=== PATIENT | male | born 1995 | race African-American/Black ===

== ENCOUNTER 2020-05-22 13:42 | Emergency (ER) | payer OTHER ==
[~2020-05-22] VITALS: Ht 188 cm; Wt 84.5 kg
--- NOTE | 2020-05-22 14:18 | REP ---
INDICATION: nose bleed, headache. COMPARISON: None. TECHNIQUE: Helical scanning is acquired. 5 mm axial images were reformatted. Coronal MPR images were generated. FINDINGS: Bone window settings demonstrate an intact bony calvarium. There is no evidence of skull fracture or incidental bony calvarial lesion. The visualized paranasal sinuses appear clear. No intraorbital abnormality is seen. On soft tissue window setting images; the lateral, third, and fourth ventricles are normal in size and position. Zheng-white differentiation pattern is normal above and below the tentorium. There are is no evidence of intracranial hemorrhage. No mass, edema, infarction, or midline shift is seen. No extra-axial fluid collection is appreciated. IMPRESSION: Negative noncontrast head CT. <Electronically signed by Usman Tony > 05/22/20 0851
[2020-05-22 15:20] LABS: HEMOGLOBIN 15.1 g/dl (13.5-17.5); MEAN CORPUSCULAR HEMOGLOBIN 30.1 pg (27.0-33.0); MEAN CORPUSCULAR HGB CONC 33.6 g/dl (32.0-36.5); MEAN CORPUSCULAR VOLUME 89.6 fl (80.0-96.0); PLATELET COUNT, AUTOMATED 168 10^3/uL (150-450); RED BLOOD COUNT 5.02 10^6/uL (4.30-6.10); WHITE BLOOD COUNT 7.7 10^3/uL (4.0-10.0)
[2020-05-22 15:31] LABS: INR 1.23; PROTHROMBIN TIME 15.8 SECONDS (12.5-14.3)
[2020-05-22 15:32] LABS: PARTIAL THROMBOPLASTIN TIME 29.3 SECONDS (24.2-38.5)
[2020-05-22 15:43] VITALS: BP 134/69
== END 2020-05-22 15:44 | disposition home or self-care (01) ==
LOC: M ED 13:42
DX: G44.52 New daily persistent headache (NDPH) (principal); R04.0 Epistaxis

== ENCOUNTER → 2020-12-10 | Outpatient (REF) | payer OTHER ==
[2020-12-10 14:12] LABS: SEMEN APPEARANCE OPAQUE (OPAQUE); SEMEN VISCOSITY LIQUID (LIQUID); SEMEN VOLUME 4.5 ml (2.0-5.0); SEMEN pH 7.5 (7.0-8.0); SPERM CONCENTRATION 82.5 M/ml (>=15.0); WBC CONCENTRATION <=1 M/ml (<=1 M/ml)
== END ==
LOC: M LAB REF 13:50
PROVIDERS: ATTEND Obstetrics & Gynecology
DX: N46.8 Other male infertility (principal)

== ENCOUNTER 2021-04-22 08:11 | Emergency (ER) | payer OTHER ==
[~2021-04-22] VITALS: Ht 188 cm; Wt 95.4 kg
[2021-04-22] MEDS ORDERED: DERMABOND TOPICAL SKIN ADHESIVE TOP ONE (10:35)
[2021-04-22] MEDS ORDERED: ACETAMINOPHEN 500 MG TAB PO ONE (10:35)
[2021-04-22 11:04] VITALS: BP 120/76
== END 2021-04-22 11:06 | disposition home or self-care (01) ==
LOC: M ED 08:11
DX: S01.112A Laceration without foreign body of left eyelid and periocular area, initial encounter (principal); W21.9XXA Striking against or struck by unspecified sports equipment, initial encounter; Y92.89 Other specified places as the place of occurrence of the external cause; Y93.9 Activity, unspecified; Y99.1 Military activity; F17.290 Nicotine dependence, other tobacco product, uncomplicated

== ENCOUNTER 2021-10-07 12:26 | Emergency (ER) | payer OTHER ==
[~2021-10-07] VITALS: Ht 188 cm; Wt 95.6 kg
[2021-10-07 14:30] VITALS: BP 107/50
== END 2021-10-07 14:30 | disposition home or self-care (01) ==
LOC: M ED 12:26
DX: S06.0X0A Concussion without loss of consciousness, initial encounter (principal); W22.8XXA Striking against or struck by other objects, initial encounter; Y99.1 Military activity